=== PATIENT | male | born 1980 | race African-American/Black ===

== ENCOUNTER 2018-12-04 18:00 | Emergency (ER) | payer OTHER ==
[~2018-12-04] VITALS: Ht 172.7 cm; Wt 63.5 kg
[2018-12-04 18:25] VITALS: BP 152/98
[2018-12-04 19:34] LABS: Eosinophils # (auto) 0.2 uL; Red Blood Cells 2.86 10^6/uL (4.5-5.90)
[2018-12-04 19:36] LABS: Basophils # (auto) 0.1 uL; Basophils % (auto) 0.6 % (0.0-2.0); Eosinophils % (auto) 2.4 % (0.0-7.0); Hematocrit 25.7 % (41.0-53.0); Hemoglobin 8.2 g/dL (13.5-17.5); Lymphocytes # (auto) 0.8 uL; Lymphocytes % (auto) 8.2 % (10.0-50.0); Mean Corpuscular Hemoglobin 28.7 pg (28.0-32.0); Mean Corpuscular Hgb Conc. 31.9 g/dL (32.0-36.0); Mean Corpuscular Volume 89.8 fL (80.0-100.0); Monocytes # (auto) 0.4 uL; Monocytes % (auto) 4.1 % (0.0-12.0); Neutrophils # (auto) 8.2 uL; Neutrophils % (auto) 84.7 % (37.0-80.0); Red Cell Distribution Width 16.7 % (11.8-14.3); White Blood Cell 9.7 10^3/uL (4.4-10.8)
[2018-12-04 19:49] LABS: Albumin 2.4 g/dL (3.4-5.0); BUN/Creatinine Ratio 3.3; Calcium 7.8 mg/dL (8.5-10.1); Potassium 4.7 mmol/L (3.5-5.1)
[2018-12-04 19:52] LABS: Bilirubin, Total 0.3 mg/dL (0.2-1.0); Total Protein 7.3 g/dL (6.4-8.2)
[2018-12-04 20:04] LABS: Platelet Count (auto) 453 10^3/uL (140-450)
== END 2018-12-04 22:40 | disposition left against medical advice (07) ==
LOC: ER 18:00
DX: R10.9 Unspecified abdominal pain (principal); R50.9 Fever, unspecified; Z53.21 Procedure and treatment not carried out due to patient leaving prior to being seen by health care provider
CPT/HCPCS: 36415; 80053; 83605; 85025; 87040